=== PATIENT | male | born 1945 | race Caucasian/White ===

== ENCOUNTER 2018-04-13 12:25 | Outpatient (CLI) | payer MEDICARE ==
--- NOTE | 2018-04-13 19:40 | RAD ---
CHEST TWO VIEWS 04/13/18 The heart is normal in size and the lungs are clear. No infiltrate or effusion was seen. There is no vascular congestion or edema. The trachea is midline and the mediastinum appears normal. A small roun ded 7 to 8 mm nodule in the right lung base is almost certainly a granuloma and is of little concern. IMPRESSION: No acute findings. POS: HOME
== END 2018-04-13 12:26 | disposition home or self-care (01) ==
LOC: BURRAD 12:25
PROVIDERS: ATTEND Family Medicine
DX: J45.40 Moderate persistent asthma, uncomplicated (principal)
CPT/HCPCS: 71046

== ENCOUNTER 2019-09-12 11:26 | Outpatient (CLI) | payer MEDICARE ==
--- NOTE | 2019-09-12 16:37 | RAD ---
CHEST TWO VIEWS: 09/12/19 Comparison is made with the 03/06/19 study. The heart is normal in size and the lungs are clear. No infiltrate or effusion was seen. There is no congestion or edema. The lungs are not particularly hyperexpanded today. IMPRESSION: No acute findings. POS: HOME
[2019-09-12 16:48] LABS: #Basophils 0.1 thou/uL (0.0-0.2); #Eosinphils 0.2 thou/uL (0.0-0.7); #Lymphocytes 1.6 thou/uL (1.20-3.40); #Monocytes 0.9 thou/uL (0.11-0.59); #Neutrophils 4.4 thou/uL (1.40-6.50); %Eosinophils 3.2 % (0.0-10.0); %Lymphocytes 22.4 % (21.0-51.0); %Monocytes 11.8 % (0.0-10.0); %Neutrophils 61.5 % (42.0-75.0); Hemoglobin 15.5 g/dL (14.0-18.0); Mean Corpuscular HGB CONC 34.5 g/dL (32.0-36.0); Mean Corpuscular Hemoglobin 31.6 pg (27.0-31.0); Mean Corpuscular Volume 91.6 fL (78.0-98.0); Mean Platelet Volume 7.1 fL (7.4-10.4); Platelet Count 211 thou/uL (130-400); RBC Distribution Width 12.3 % (11.5-14.5); Red Blood Cell (RBC) Count 4.89 mill/uL (4.70-6.10); White Blood Cell (WBC) Count 7.2 thou/uL (4.8-10.8)
[2019-09-12 17:05] LABS: ALT (SGPT) 15 U/L (8-55); AST (SGOT) 18 U/L (5-34); Albumin 4.2 g/dL (3.4-4.8); Alkaline Phosphatase 83 U/L (40-110); Anion Gap 14 mmol/L (10-20); BUN (Urea Nitrogen) 18 mg/dL (8.4-25.7); Bilirubin, Total 0.6 mg/dL (0.2-1.2); Calc. Creatinine Clearance 0 mL/min (70-130); Carbon Dioxide 24 mmol/L (23-31); Chloride 105 mmol/L (98-107); Estimated GFR-MDRD 57; Globulin 2.7 g/dL (2.4-3.5); Glucose 92 mg/dL (83-110); Lipase 32 U/L (8-78); Potassium 4.5 mmol/L (3.5-5.1); Protein, Total 6.9 g/dL (5.8-8.1); Sodium 138 mmol/L (136-145)
== END 2019-09-12 11:27 | disposition home or self-care (01) ==
LOC: BURRAD 11:26
PROVIDERS: ATTEND Nurse Practitioner Family
DX: J45.40 Moderate persistent asthma, uncomplicated (principal); R10.13 Epigastric pain
CPT/HCPCS: 36415; 71046; 80053; 83690; 85025; 86677

== ENCOUNTER 2020-02-26 08:08 | Outpatient (CLI) | payer MEDICARE ==
[2020-02-26] MEDS ORDERED: Iopamidol 370 76% 100 ML VIAL ONE (09:48)
--- NOTE | 2020-02-26 20:27 | CT ---
CTA AORTIC DISSECTION PROTOCOL 02/26/[address] of the chest and abdomen was done after a bolus of IV contrast. Multiplanar reconstructions were done afterwards. There is no sign of aortic aneurysm or dissection. The major mesenteric arteries all fill well as the y arise from the aorta, as does each renal artery. There is a small amount of plaque build up in the mid to distal aorta. Both common iliac arteries fill. CT of the thorax shows good opacification of the pulmonary arteries which show no sign of embolism. T here was no sign of mediastinal mass or significant adenopathy. The lungs were clear. No infiltrate o r effusion was seen. Some degenerative changes are seen in the patient's thoracic spine, mainly cons isting of osteophytes. No bony destructive lesions were seen. Some coronary artery calcifications are noted faintly in the left and right systems. CT of the abdomen shows a few small cystic lesions scattered throughout the liver. Ultrasound would b e needed to prove they were purely cystic, but statistically, they are more likely benign than not. T he largest is about 1.6 cm in size and most are subcentimeter in size. The spleen, pancreas, adrenal glands, and kidneys showed no acute findings. A few parapelvic cysts are noted in the kidneys. There has been a prior cholecystectomy. The visible bowel showed no distention or wall thickening. IMPRESSION: 1. No evidence of aortic dissection or aneurysm. Some minor arteriosclerotic changes is noted. 2. No evidence of pulmonary embolism. 3. Clear lungs. 4. Upper abdomen unremarkable except for a few small lucencies throughout the liver. Statistical ly these are most likely cysts. POS: HOME
== END 2020-02-26 08:09 | disposition home or self-care (01) ==
LOC: BURCT 08:08
PROVIDERS: ATTEND Family Medicine
DX: Z01.812 Encounter for preprocedural laboratory examination (principal); M54.6 Pain in thoracic spine; R10.84 Generalized abdominal pain; I10 Essential (primary) hypertension; I25.10 Atherosclerotic heart disease of native coronary artery without angina pectoris; R93.2 Abnormal findings on diagnostic imaging of liver and biliary tract
CPT/HCPCS: 36415; 71275; 72191; 74175; 82565; Q9967

== ENCOUNTER 2021-08-29 12:04 | Emergency (ER) | payer OTHER, MEDICARE | END 2021-08-29 12:45 | disposition home or self-care (01) | LOC: BURERS 12:04 | DX: S46.812A Strain of other muscles, fascia and tendons at shoulder and upper arm level, left arm, initial encounter (principal); J45.909 Unspecified asthma, uncomplicated; E78.5 Hyperlipidemia, unspecified; F17.220 Nicotine dependence, chewing tobacco, uncomplicated; V43.62XA Car passenger injured in collision with other type car in traffic accident, initial encounter | CPT/HCPCS: 99283 ==